=== PATIENT | female | born 1940 | race Caucasian/White ===

== ENCOUNTER 2018-10-21 08:47 | Observation (INO) | payer MEDICARE, OTHER ==
[~2018-10-21] VITALS: Ht 165.1 cm; Wt 94.8 kg
[~2018-10-21 08:47] MED LIST: AMLO-150 PO; ASPI-496 PO; BENA20TA54 PO; BENA40TA3 PO; BIOT25005 PO; CARV12.52 PO; GEMF600T8 PO; HYDR25TA6 PO; LEVO500T47 PO; MECL-85 PO; METF10002 PO
--- NOTE | 2018-10-21 08:57 | NUR ---
First contact with pt. Pt brought in by EMS with c/o n/v/d, center chest "discomfort", and cough that began on Monday10/19/18. Pt states she was in bed all day yesterday. Pt states she vomitted about two hours ago "yellow water" and that she has had soft stools. Pt has pacemaker prior to arrival and pt is connected to all monitors. Pt is hypertensive at 197/90, hr is at 53. Pt is afebrile at 98.1. Pt is at 91% on room air. NADN. Pt's daughter and granddaughter at bedside. All safety measures in place. Call light within reach.
[2018-10-21] MEDS ORDERED: OMEP-110 PO (09:16)
[2018-10-21] MEDS ORDERED: FAMOTIDINE 20 MG/2 ML IVP ONE (09:30)
[2018-10-21] MEDS ORDERED: SODIUM CHLORIDE FLUSH 10ML SYR IVF ONE (09:30)
[2018-10-21] MEDS ORDERED: ONDANSETRON 2MG/ML, 2ML IVPush ONE (09:30)
[2018-10-21] MEDS ORDERED: methylPREDNISolone SOD SUCC 125 MG/2 ML IVP ONE (09:30)
[2018-10-21 09:39] LABS: BASOPHILS # (AUTO) 0.01 x10^3/uL (0-0.1); BASOPHILS % (AUTO) 0 % (0-1); EOSINOPHILS # (AUTO) 0.02 x10^3/uL (0-0.4); EOSINOPHILS % (AUTO) 0 % (1-7); LYMPHOCYTES # (AUTO) 0.77 x10^3/uL (1-3.4); LYMPHOCYTES % (AUTO) 13 % (22-44); MD NO; MEAN CORPUSCULAR HEMOGLOBIN 28.6 pg (27.0-34.8); MEAN CORPUSCULAR HGB CONC 33.1 g/dL (32.4-35.8); MEAN CORPUSCULAR VOLUME 86.2 fL (80-100); MEAN PLATELET VOLUME 8.5 fL (7.4-10.4); MONOCYTES # (AUTO) 0.34 x10^3/uL (0.2-0.8); MONOCYTES % (AUTO) 6 % (2-9); NEUTROPHILS # (AUTO) 5.01 x10^3/uL (1.8-6.8); NEUTROPHILS % (AUTO) 81 % (42-75); PLATELET COUNT 164 x10^3/uL (130-400); RED BLOOD COUNT 3.89 x10^6/uL (3.82-5.3); RED CELL DISTRIBUTION WIDTH 15.4 % (9.6-15.2)
[2018-10-21] MEDS ORDERED: ONDANSETRON 2MG/ML, 2ML ONE (09:44)
[2018-10-21] MEDS ORDERED: methylPREDNISolone SOD SUCC 125 MG/2 ML ONE (09:44)
[2018-10-21] MEDS ORDERED: FAMOTIDINE 20 MG/2 ML ONE (09:44)
[2018-10-21] MEDS ORDERED: ALBUTEROL/IPRATROPIUM 2.5MG/0.5MG, 3 ML ONE (09:47)
[2018-10-21 09:49] LABS: ALANINE AMINOTRANSFERASE 13 U/L (12-78); ANION GAP 8 mmol/L (5-15); CALCIUM 8.7 mg/dL (8.5-10.1); CHLORIDE 110 mmol/L (98-107); CREATININE 1.25 mg/dL (0.55-1.02)
[2018-10-21 09:54] LABS: ALKALINE PHOSPHATASE 67 U/L (45-117); BILIRUBIN,TOTAL 0.5 mg/dL (0.2-1.0); TOTAL PROTEIN 7.2 g/dL (6.4-8.2)
[2018-10-21] MEDS: ALBUTEROL/IPRATROPIUM 2.5MG/0.5MG, 3 ML NPPB SCH (10:00)
[2018-10-21 10:10] LABS: RAPID INFLUENZA A Negative (Negative); RAPID INFLUENZA B Negative (Negative)
--- NOTE | 2018-10-21 10:14 | NUR ---
BS REPORT FROM HENRIETTA ARAUZ, ASSUME CARE OF PT AT THIS TIME. PT RESTING COMFORTABLY, NO COMPLAINTS, STATES SHE IS FEELING BETTER. FAMILY AT BS. CALL LIGHT WITHIN REACH.
[2018-10-21] MEDS ORDERED: CEFTRIAXONE PMX 1GM/50ML 50 ML IVPB ONE (10:30)
[2018-10-21] MEDS ORDERED: AZITHROMYCIN 500 MG in SODIUM CHLORIDE 0.9% 250 ML IV ONE (10:30)
[2018-10-21] MEDS ORDERED: CEFTRIAXONE PMX 1GM/50ML 50 ML ONE (10:44)
--- NOTE | 2018-10-21 11:07 | NUR ---
ANTIBIOTIC INFUSING PER ORDER AFTER CONFIRMATION OF BC X 2 DRAWN. PT UPDATED ON POC, ADMIT. VSS/UPDATED IN COMPUTER.
--- NOTE | 2018-10-21 11:20 | NUR ---
REPORT TO NOAH ARAUZ. PT READY FOR TRANSPORT.
[2018-10-21] MEDS ORDERED: SODIUM CHLORIDE 0.9% 1,000 ML IV SCH (11:31)
[2018-10-21 11:39] VITALS: BP 182/107
[2018-10-21] MEDS ORDERED: ENALAPRILAT 1.25 MG/ML, 2ML ONE (11:41)
[2018-10-21] MEDS: OMEPRAZOLE 20 MG CAPSULE.DR PO SCH (12:00)
[2018-10-21] MEDS ORDERED: ENALAPRILAT 1.25 MG/ML, 2ML IVPush PRN (12:00)
[2018-10-21] MEDS ORDERED: ACETAMINOPHEN 325 MG TABLET PO PRN (12:00)
[2018-10-21] MEDS ORDERED: ONDANSETRON ODT 4 MG PO PRN (12:00)
[2018-10-21] MEDS ORDERED: DOCUSATE 100 MG CAPSULE PO PRN (12:00)
[2018-10-21 13:11] VITALS: BP 171/91
[2018-10-21] MEDS: BENAZEPRIL 20 MG TABLET PO SCH (13:12)
[2018-10-21] MEDS: CARVEDILOL 25 MG TABLET PO SCH ×3 (13:12→20:29)
[2018-10-21] MEDS: AMLODIPINE 5 MG TABLET PO SCH (13:12)
[2018-10-21] MEDS: HEPARIN 5,000 UNITS/ML, 1ML SQ SCH ×2 (13:13→20:25)
[2018-10-21] MEDS: GEMFIBROZIL 600 MG TABLET PO SCH ×2 (13:18→20:25)
[2018-10-21 14:44] VITALS: BP 156/87
[2018-10-21 19:35] VITALS: BP 152/82
[2018-10-21 21:06] LABS: CULTURE INDICATED? YES
[2018-10-21 21:07] LABS: MICROSCOPIC INDICATED
[2018-10-22 02:30] VITALS: BP 136/77
[2018-10-22 04:47] LABS: BASOPHILS # (AUTO) 0.02 x10^3/uL (0-0.1); BASOPHILS % (AUTO) 0 % (0-1); EOSINOPHILS % (AUTO) 0 % (1-7); LYMPHOCYTES # (AUTO) 0.65 x10^3/uL (1-3.4); LYMPHOCYTES % (AUTO) 12 % (22-44); MD NO; MEAN CORPUSCULAR HEMOGLOBIN 29.4 pg (27.0-34.8); MEAN CORPUSCULAR HGB CONC 34.1 g/dL (32.4-35.8); MEAN CORPUSCULAR VOLUME 86.2 fL (80-100); MEAN PLATELET VOLUME 8.8 fL (7.4-10.4); MONOCYTES # (AUTO) 0.41 x10^3/uL (0.2-0.8); MONOCYTES % (AUTO) 8 % (2-9); NEUTROPHILS # (AUTO) 4.27 x10^3/uL (1.8-6.8); NEUTROPHILS % (AUTO) 80 % (42-75); PLATELET COUNT 155 x10^3/uL (130-400); RED BLOOD COUNT 3.62 x10^6/uL (3.82-5.3); RED CELL DISTRIBUTION WIDTH 15.3 % (9.6-15.2)
[2018-10-22 04:58] LABS: ANION GAP 7 mmol/L (5-15); CALCIUM 8.1 mg/dL (8.5-10.1); CHLORIDE 111 mmol/L (98-107)
[2018-10-22] MEDS: HEPARIN 5,000 UNITS/ML, 1ML SQ SCH ×2 (05:21→13:35)
[2018-10-22 07:49] VITALS: BP 144/85
[2018-10-22] MEDS: CARVEDILOL 25 MG TABLET PO SCH (08:00)
[2018-10-22] MEDS: OMEPRAZOLE 20 MG CAPSULE.DR PO SCH (08:00)
[2018-10-22] MEDS: BENAZEPRIL 20 MG TABLET PO SCH (08:00)
[2018-10-22] MEDS ORDERED: ALBUTEROL SULFATE 2.5MG/0.5ML NPPB SCH (08:00)
[2018-10-22] MEDS: AMLODIPINE 5 MG TABLET PO SCH (08:00)
[2018-10-22] MEDS: GEMFIBROZIL 600 MG TABLET PO SCH (08:00)
[2018-10-22] MEDS ORDERED: AZITHROMYCIN 250 MG TABLET PO SCH (09:00)
[2018-10-22] MEDS ORDERED: CEFTRIAXONE PMX 1GM/50ML 50 ML IV SCH (09:00)
[2018-10-22] MEDS ORDERED: ALBUTEROL SULFATE 2.5 MG/3 ML ONE (11:16)
[2018-10-22 13:00] VITALS: BP 114/72
[2018-10-22] MEDS ORDERED: AMOX500T PO (13:54)
[2018-10-22] MEDS ORDERED: ALBU8.5H8 PO (13:54)
[2018-10-22] MEDS ORDERED: ALBUTEROL SULFATE 2.5 MG/3 ML NPPB SCH (15:00)
== END 2018-10-22 15:24 | disposition home or self-care (01) ==
LOC: ED 10:20 → INTOOBSV 10:45 → EDIP 10:45 → 3NW 11:36
PROVIDERS: ADMIT Family Medicine; ATTEND Family Medicine
DX: J15.9 Unspecified bacterial pneumonia (principal); E11.649 Type 2 diabetes mellitus with hypoglycemia without coma; E11.69 Type 2 diabetes mellitus with other specified complication; E78.5 Hyperlipidemia, unspecified; I11.0 Hypertensive heart disease with heart failure; I50.9 Heart failure, unspecified; R09.02 Hypoxemia; Z85.42 Personal history of malignant neoplasm of other parts of uterus; Z87.891 Personal history of nicotine dependence; Z90.710 Acquired absence of both cervix and uterus; Z95.0 Presence of cardiac pacemaker; Z80.51 Family history of malignant neoplasm of kidney
CPT/HCPCS: 36415; 74022; 80048; 80053; 81001; 83605; 83690; 83880; 84145; 84484; 85025; 87040; 87086; 87400; 93005; 94640; 96361; 96365; 96366; 96368; 96372; 96375; 99284; G0378; J0456; J0696; J1644; J2405; J2930; J3490; J7030; J7050; J7620; 96374; 99285